=== PATIENT | male | born 1995 ===

== ENCOUNTER 2018-04-07 14:04 | Emergency (ER) | payer OTHER, MEDICAID ==
[2018-04-07 14:19] VITALS: BP 130/64
--- NOTE | 2018-04-07 15:24 | UC ---
Lower Extremity/Ankle HPI - HPI Summary HPI Summary: 23 yo male presents with LEFT foot pain since yesterday. He tells me that he was playing in a basketball game and went up for a dunk. When he landed he felt a sharp pain in his left foot and had to leave the game. Has been using a CAM boot and crutches since that time from his head athletic trainer/strength coach. His head athletic trainer/strength coach is concerned there may be a fracture and recommended he get an XR. Denies numbness or tingling. - History of Current Complaint Chief Complaint: UCLowerExtremity Stated Complaint: L FOOT ANKLE Time Seen by Provider: 04/07/18 15:23 Hx Obtained From: Patient Onset/Duration: Sudden Onset Severity Initially: Moderate Severity Currently: Moderate Pain Intensity: 8 Pain Scale Used: 0-10 Numeric Aggravating Factor(s): Standing, Ambulation Alleviating Factor(s): Rest, Elevation Able to Bear Weight: Yes - Allergies/Home Medications Allergies/Adverse Reactions: Allergies Allergy/AdvReac Type Severity Reaction Status Date / Time No Known Allergies Allergy Verified 04/07/18 14:19 Home Medications: Home Medications NK [No Home Medications Reported] 04/07/18 [History Confirmed 04/07/18] PMH/Surg Hx/FS Hx/Imm Hx - Additional Past Medical History Additional PMH: None - Surgical History Surgical History: None - Family History Known Family History: Positive: None - Social History Occupation: Employed Full-time Lives: With Family Alcohol Use: Occasionally Substance Use Type: Marijuana Smoking Status (MU): Never Smoked Tobacco Review of Systems All Other Systems Reviewed And Are Negative: Yes Constitutional: Positive: Negative Skin: Positive: Negative Respiratory: Positive: Negative Cardiovascular: Positive: Negative Neurovascular: Positive: Negative Musculoskeletal: Positive: Other: - Left foot pain Neurological: Positive: Negative Psychological: Positive: Negative Physical Exam - Summary Physical Exam Summary: GENERAL: NAD. WDWN. No pain distress. SKIN: No rashes, sores, lesions, or open wounds. CHEST: No accessory muscle use. Breathing comfortably and in no distress. CV: Pulses intact PT and DP. Cap refill <2seconds MSK: LEFT FOOT: Mild TTP at 1st MT and arch. FROM and NTTP at left ankle. Strength 5/5. No edema or obvious bony deformities. NEURO: Alert. Sensations intact and symmetric B/L LEs PSYCH: Age appropriate behavior. Triage Information Reviewed: Yes Vital Signs: Initial Vital Signs Temp 96.7 F 04/07/18 14:16 Pulse 73 04/07/18 14:16 Resp 16 04/07/18 14:16 BP 130/64 04/07/18 14:16 Pulse Ox 100 04/07/18 14:16 Vital Signs Reviewed: Yes Lower Extremity Course/Dx - Course Course Of Treatment: XR: IMPRESSION: NO ACUTE OSSEOUS INJURY. IF SYMPTOMS PERSIST, RECOMMEND REPEAT IMAGING. Discussed results with pt. He was provided with a larger walking boot as his was a bit small for him. Advised to continue using the boot, crutches, and to RICE - f/u with his head athletic trainer/strength coach. - Differential Dx/Diagnosis Provider Diagnosis: Sprain of left foot Discharge - Sign-Out/Discharge Documenting (check all that apply): Patient Departure All imaging exams completed and their final reports reviewed: Yes - Discharge Plan Condition: Stable Disposition: HOME Patient Education Materials: Foot Sprain (ED) Referrals: No Primary Care Phys,NOPCP [Primary Care Provider] - Additional Instructions: If you develop a fever, shortness of breath, chest pain, new or worsening symptoms - please call your PCP or go to the ED. Rest, Ice, and elevate your foot as much as possible. Use your crutches and walking boot until feeling better Follow up with your head athletic trainer/strength coach - Billing Disposition and Condition Condition: STABLE Disposition: Home
== END 2018-04-07 16:15 | disposition home or self-care (01) ==
LOC: UCEAST 14:04
DX: S93.602A Unspecified sprain of left foot, initial encounter (principal); X58.XXXA Exposure to other specified factors, initial encounter; Y93.67 Activity, basketball; Y92.310 Basketball court as the place of occurrence of the external cause
CPT/HCPCS: 99202; G0463